=== PATIENT | female | born 1975 | race American Indian/Alaskan Native ===

== ENCOUNTER 2017-08-06 10:24 | Emergency (ER) | payer OTHER ==
[2017-08-06] MEDS ORDERED: ZOFRAN IV ONE (11:18)
[2017-08-06] MEDS ORDERED: SUBLIMAZE IV ONE ×3 (11:18→12:40)
[2017-08-06] MEDS ORDERED: DIPRIVAN 10 MG/ML IV ONE ×4 (12:18→12:40)
--- NOTE | 2017-08-06 12:21 | XRay Report ---
RIGHT SHOULDER RADIOGRAPHS INDICATION: Right shoulder dislocation, pain. COMPARISON: None similar at this institution. FINDINGS: Frontal and attempted Y views of the right shoulder suggest anteroinferior glenohumeral dislocation. No apparent fracture. Intact AC articulation. Normal imaged lung and ribs. Thoracic levocurvature. CONCLUSION: Right shoulder dislocation, as described. Thank you for the opportunity to participate in this patient's care.
[2017-08-06] MEDS ORDERED: INDERAL IV ONE (12:34)
--- NOTE | 2017-08-06 12:49 | Emergency Department Report ---
ED General Adult HPI - General Chief complaint: Fall Stated complaint: RIGHT SHOULDER INJURY Time Seen by Provider: 08/06/17 11:18 Source: patient Mode of arrival: Ambulatory Limitations: No Limitations - History of Present Illness Initial comments: Patient slipped and fell down a few stairs. She states that after the fall she injured her right shoulder. She isn't sure if she fell on an outstretched arm or how her shoulder apparently dislocated. She denies neck pain back pain or any other injury. She did not hit her head. She did not lose consciousness. She didn't have any antecedent symptoms such as nausea, weakness, dizziness, pain. She states that she has been feeling fine except for fall. It was a mechanical trip and fall. The patient states that she had a light breakfast before 9 AM consisting of a biscuit. She's had previous sedation procedures without any problem. -: Gradual Location: right (shoulder) Radiation: non-radiation Severity scale (0 -10): 8 Quality: aching Consistency: constant Improves with: none Worsens with: none Associated Symptoms: denies other symptoms Treatments Prior to Arrival: none - Related Data Allergies Allergy/AdvReac Type Severity Reaction Status Date / Time No Known Allergies Allergy Unverified 08/06/17 11:01 ED Review of Systems ROS: Stated complaint: RIGHT SHOULDER INJURY Other details as noted in HPI Constitutional: denies: chills, fever Eyes: denies: eye pain, eye discharge, vision change ENT: denies: ear pain, throat pain Respiratory: denies: cough, shortness of breath, wheezing Cardiovascular: denies: chest pain, palpitations Endocrine: no symptoms reported Gastrointestinal: denies: abdominal pain, nausea, diarrhea Genitourinary: denies: urgency, dysuria, discharge Musculoskeletal: as per HPI. denies: back pain, joint swelling, arthralgia Skin: denies: rash, lesions Neurological: denies: headache, weakness, paresthesias Psychiatric: denies: anxiety, depression Hematological/Lymphatic: denies: easy bleeding, easy bruising ED Past Medical Hx - Past Medical History Previous Medical History?: Yes - Surgical History Past Surgical History?: Yes Additional Surgical History: x3 - Social History Smoking Status: Never Smoker Substance Use Type: Alcohol ED Physical Exam - General Limitations: No Limitations General appearance: alert, in no apparent distress - Head Head exam: Present: atraumatic, normocephalic - Eye Eye exam: Present: normal appearance. Absent: scleral icterus - ENT ENT exam: Present: mucous membranes moist - Neck Neck exam: Present: normal inspection. Absent: tenderness - Respiratory Respiratory exam: Present: normal lung sounds bilaterally. Absent: respiratory distress - Cardiovascular Cardiovascular Exam: Present: regular rate, normal rhythm. Absent: systolic murmur, diastolic murmur, rubs, gallop - GI/Abdominal GI/Abdominal exam: Present: soft, normal bowel sounds. Absent: distended, tenderness, guarding, rebound - Extremities Exam Extremities exam: Present: other (apparent anterior dislocation of the right shoulder. Distal extremity neurovascular exam is intact.) - Back Exam Back exam: Present: normal inspection. Absent: tenderness, CVA tenderness (R), CVA tenderness (L), muscle spasm, paraspinal tenderness, vertebral tenderness - Neurological Exam Neurological exam: Present: alert, oriented X3, CN II-XII intact. Absent: motor sensory deficit - Psychiatric Psychiatric exam: Present: normal affect, normal mood - Skin Skin exam: Present: warm, dry, intact, normal color. Absent: rash ED Course Vital Signs 08/06/17 08/06/17 08/06/17 11:01 12:20 12:25 Temperature 98.7 F Temperature [ 98.5 F Pre-Procedure] Pulse Rate 98 H Pulse Rate [ 68 Intra-Procedure ] Pulse Rate [Pre 63 -Procedure] Respiratory 22 Rate Respiratory 16 Rate [Intra- Procedure] Respiratory 18 Rate [Pre- Procedure] Blood Pressure 144/87 Blood Pressure 138/80 [Intra- Procedure] Blood Pressure 132/79 [Pre-Procedure] O2 Sat by Pulse 97 Oximetry O2 Sat by Pulse 100 Oximetry [ Intra-Procedure ] O2 Sat by Pulse 100 Oximetry [Pre- Procedure] 08/06/17 12:30 Temperature Temperature [ Pre-Procedure] Pulse Rate Pulse Rate [ 68 Intra-Procedure ] Pulse Rate [Pre -Procedure] Respiratory Rate Respiratory 16 Rate [Intra- Procedure] Respiratory Rate [Pre- Procedure] Blood Pressure Blood Pressure 120/66 [Intra- Procedure] Blood Pressure [Pre-Procedure] O2 Sat by Pulse Oximetry O2 Sat by Pulse 100 Oximetry [ Intra-Procedure ] O2 Sat by Pulse Oximetry [Pre- Procedure] - Reevaluation(s) Reevaluation #1: Patient had an anterior dislocation of her right shoulder. She was given a titrated dose of analgesia (fentanyl) and sedation. This was well tolerated. We achieved adequate relaxation to easily reduce the shoulder without difficulty. She was placed in a sling. She will follow up with orthopedist 08/06/17 12:48 - Moderate Sedation Indications: fracture/dislocation redu Presedation Evaluation: Normal exam see documentation ASA Class: I Mallampati Airway Score: 3 Time of Last PO Intake: 08:45 Preparation: athletic monitor applied, pulse oximeter, capnometry used, supplemental O2 applied Fentanyl: IV Fentanyl Dose: 150 IV Propofol Dose (mgs): 50 Complications: none Interventions: oxygen applied (left on oxygen preprocedure) Patient Tolerated Procedure: well - Orthopedic Joint Reduction Joint #1 Consent Obtained: verbal consent Time Out Performed: Yes Side: right Joint Reduction Location: shoulder Analgesia: moderate sedation Shoulder Technique Used (if applicable): other (modified Violeta) Post-Reduction Neuro Exam: intact Post-Reduction Vascular Exam: intact Post Reduction X-Ray Obtained: Yes Post Reduction X-Ray Results: other (Will review) ED Medical Decision Making - Radiology Data interpreted by me: Anterior dislocation of the right shoulder with reduction film pending Critical care attestation.: If time is entered above; I have spent that time in minutes in the direct care of this critically ill patient, excluding procedure time. ED Disposition Clinical Impression: Anterior dislocation of right shoulder Qualifiers: Encounter type: initial encounter Qualified Code(s): S43.014A - Anterior dislocation of right humerus, initial encounter Disposition: TO HOME OR SELFCARE Is pt being admited?: No Does the pt Need Aspirin: No Condition: Stable Instructions: Shoulder Dislocation (ED) Additional Instructions: Advil and the discomfort later on today. Follow-up with orthopedic Dr. Arroyo listed. Return as needed any problems. Sling 24 hours. Do not stress shoulder thereafter until cleared by Dr. Arroyo. Referrals: SHAUN ARROYO MD [Staff Physician] - 2-3 Days Time of Disposition: 13:30
[2017-08-06 13:35] VITALS: BP 140/66
--- NOTE | 2017-08-06 14:10 | XRay Report ---
RIGHT SHOULDER RADIOGRAPH INDICATION: Post reduction. COMPARISON: 11:22 AM earlier today. FINDINGS: Portable, single, frontal right shoulder view, 12:52 PM, 08/06/2017 now demonstrates satisfactory humeral head position against the glenoid. No definite acute fracture identified. Intact acromioclavicular articulation as well. Right hemidiaphragm mildly elevated. CONCLUSION: Satisfactory post reduction right shoulder radiograph, as described. Please correlate. Thank you for the opportunity to participate in this patient's care.
== END 2017-08-06 13:56 | disposition home or self-care (01) ==
LOC: ED 10:24
DX: S43.014A Anterior dislocation of right humerus, initial encounter (principal); W18.30XA Fall on same level, unspecified, initial encounter; Y93.89 Activity, other specified; Y92.89 Other specified places as the place of occurrence of the external cause; Y99.8 Other external cause status
CPT/HCPCS: 23650; 73020; 73030; 96374; 96375; 96376; 99283; J2405; J2704; J3010